=== PATIENT | female | born 1990 | race Hispanic/Latino ===

== ENCOUNTER 2017-06-26 13:20 | Observation (INO) | payer MEDICAID ==
[~2017-06-26] VITALS: Ht 157.5 cm; Wt 85.7 kg
[2017-06-26 14:33] VITALS: BP 95/54
== END 2017-06-26 15:04 | disposition home or self-care (01) ==
LOC: EDH 13:20 → LDH 13:35
PROVIDERS: ADMIT Obstetrics & Gynecology; ATTEND Obstetrics & Gynecology
DX: O26.892 Other specified pregnancy related conditions, second trimester (principal); R05 Cough; N89.8 Other specified noninflammatory disorders of vagina; Z3A.27 27 weeks gestation of pregnancy
CPT/HCPCS: 99285; G0378; 96361

== ENCOUNTER 2017-09-18 22:03 | Inpatient (IN) | payer OTHER, MEDICAID ==
[~2017-09-18] VITALS: Ht 157.5 cm; Wt 82.1 kg
[2017-09-18] MEDS ORDERED: LACTATED RINGERS 500 ML 500 ML IV PRN (22:15)
[2017-09-18] MEDS ORDERED: PROMETHAZINE HCL 25 MG/ML 1ML AMPULE IM PRN (22:15)
[2017-09-18] MEDS ORDERED: MEPERIDINE-PF 50 MG/ML SYG IVP PRN (22:15)
[2017-09-18] MEDS ORDERED: LACTATED RINGERS 1000ML 1,000 ML IV PRN (22:15)
[2017-09-18] MEDS ORDERED: NALOXONE HCL 0.4 MG/1 ML ML IV PRN (22:15)
[2017-09-18] MEDS ORDERED: EPHEDRINE SULFATE 50 MG/ML AMPULE IVP PRN (22:15)
[2017-09-18 22:53] LABS: HEMATOCRIT 28.8 % (36-48); MEAN CORPUSCULAR HEMOGLOBIN 25.2 pg (27.0-33.0); MEAN CORPUSCULAR HGB CONC 33.1 g/dL (32.0-36.0); MEAN CORPUSCULAR VOLUME 76.1 fL (79-99); PLATELET COUNT (AUTO) 215 K/uL (130-400); RED BLOOD CELL COUNT(AUTO) 3.78 MIL/uL (4.00-5.50); RED CELL DISTRIBUTION WIDTH 18.6 % (11.0-15.5); WHITE BLOOD COUNT (AUTO) 15.3 K/uL (4.8-10.8)
[2017-09-18 23:00] LABS: BILIRUBIN,URINE Negative (NEGATIVE); COLOR,URINE Yellow (YELLOW); GLUCOSE, URINE (UA) Negative (NEGATIVE); KETONES,URINE Negative (NEGATIVE); LEUKOCYTE ESTERASE ,URINE Large (NEGATIVE); NITRATE,URINE Negative (NEGATIVE); OCCULT BLOOD,URINE Trace (NEGATIVE); PH,URINE 6.5 (5.0-8.0); PROTEIN,URINE Negative (NEGATIVE)
[2017-09-18 23:02] LABS: APPEARANCE,URINE HAZY (CLEAR)
[2017-09-18 23:23] LABS: BACTERIA,URINE Few /HPF (None Seen)
[2017-09-19] MEDS ORDERED: OXYTOCIN 10 USP UNITS/ML ONE ×2 (03:14→14:20)
[2017-09-19] MEDS ORDERED: LACTATED RINGERS 1000ML 1,000 ML IV ONE ×2 (03:14→14:20)
[2017-09-19] MEDS ORDERED: OXYTOCIN 10 USP UNITS/ML 20 UNIT in LACTATED RINGERS 1000ML 1,000 ML IV SCH (04:00)
[2017-09-19] MEDS ORDERED: LANOLIN 30GM OINTMENT TP PRN (14:00)
[2017-09-19] MEDS ORDERED: BENZOCAINE/LANOLIN/ALOE VERA 60 ML AEROSOL TP PRN (14:00)
[2017-09-19] MEDS ORDERED: DIPH,PERTUSS(ACELL),TET VAC/PF 0.5 ML VIAL IM PRN (14:00)
[2017-09-19] MEDS ORDERED: ACETAMINOPHEN 325 MG TAB PO PRN (14:00)
[2017-09-19] MEDS ORDERED: ACETAMINOPHEN-CODEINE 300/30MG TAB PO PRN (14:00)
[2017-09-19] MEDS ORDERED: MEASLES/MUMPS/RUBELLA VACCINE, LIVE 0.5 ML/VIAL SQ PRN (14:00)
[2017-09-19] MEDS ORDERED: WITCH HAZEL 1 PAD TP PRN (14:00)
[2017-09-19 15:30] VITALS: BP 103/57
[2017-09-19] MEDS: IBUPROFEN 800 MG TAB PO PRN (16:31)
[2017-09-19 20:20] VITALS: BP 111/68
[2017-09-19] MEDS: DOCUSATE SODIUM 100 MG CAP PO SCH (21:56)
[2017-09-19 23:12] VITALS: BP 93/58
[2017-09-20 03:48] VITALS: BP 98/60
[2017-09-20 07:21] LABS: HEMATOCRIT 26.6 % (36-48); MEAN CORPUSCULAR HEMOGLOBIN 24.2 pg (27.0-33.0); MEAN CORPUSCULAR HGB CONC 31.6 g/dL (32.0-36.0); MEAN CORPUSCULAR VOLUME 76.5 fL (79-99); PLATELET COUNT (AUTO) 177 K/uL (130-400); RED BLOOD CELL COUNT(AUTO) 3.48 MIL/uL (4.00-5.50); RED CELL DISTRIBUTION WIDTH 18.9 % (11.0-15.5); WHITE BLOOD COUNT (AUTO) 16.8 K/uL (4.8-10.8)
[2017-09-20 07:43] VITALS: BP 99/61
[2017-09-20] MEDS: DOCUSATE SODIUM 100 MG CAP PO SCH (08:17)
[2017-09-20] MEDS: IBUPROFEN 800 MG TAB PO PRN (08:18)
[2017-09-20 08:20] LABS: HEPATITIS Bs ANTIGEN SCREEN P Negative (Negative)
[2017-09-20 11:21] VITALS: BP 109/50
[2017-09-20 15:35] VITALS: BP 102/57
== END 2017-09-20 16:15 | disposition home or self-care (01) | DRG 775 ==
LOC: LDH 22:03 → WSH 09-19 16:25
PROVIDERS: ADMIT Obstetrics & Gynecology; ATTEND Obstetrics & Gynecology
PROC: 10E0XZZ Delivery of Products of Conception, External Approach (ICD-10-PCS; principal; 2017-09-19)
PROC: 10907ZC Drainage of Amniotic Fluid, Therapeutic from Products of Conception, Via Natural or Artificial Opening (ICD-10-PCS; 2017-09-19)
PROC: 3E033VJ Introduction of Other Hormone into Peripheral Vein, Percutaneous Approach (ICD-10-PCS; 2017-09-19)
PROC: 3E0234Z Introduction of Serum, Toxoid and Vaccine into Muscle, Percutaneous Approach (ICD-10-PCS; 2017-09-19)
PROC: 3E0134Z Introduction of Serum, Toxoid and Vaccine into Subcutaneous Tissue, Percutaneous Approach (ICD-10-PCS; 2017-09-19)
DX: O80 Encounter for full-term uncomplicated delivery (principal); Z23 Encounter for immunization; Z37.0 Single live birth; Z3A.39 39 weeks gestation of pregnancy
CPT/HCPCS: 36415; 76805; 81001; 85027; 86592; 86850; 86900; 86901; 87340; A4314; A4351; J2590; J7120

== ENCOUNTER 2022-06-07 22:27 | Inpatient (IN) | payer MEDICAID, OTHER ==
[~2022-06-07] VITALS: Ht 157.5 cm; Wt 83.9 kg
[2022-06-07] MEDS ORDERED: LACTATED RINGERS 500 ML 500 ML IV PRN (22:30)
[2022-06-07] MEDS ORDERED: PROMETHAZINE HCL 25 MG/ML 1ML AMPULE IM PRN (22:30)
[2022-06-07] MEDS ORDERED: NALOXONE HCL 0.4 MG/1 ML ML IV PRN (22:30)
[2022-06-07] MEDS ORDERED: ROPIVACAINE 0.2% 100ML VIAL 100 ML EP SCH (22:30)
[2022-06-07] MEDS ORDERED: EPHEDRINE SULFATE 50 MG/ML AMPULE IVP PRN (22:30)
[2022-06-07] MEDS ORDERED: MEPERIDINE-PF 50 MG/ML SYG IVP PRN (22:30)
[2022-06-07] MEDS ORDERED: PREN-196 PO (22:58)
[2022-06-07 23:15] LABS: APPEARANCE,URINE CLEAR (CLEAR); BILIRUBIN,URINE NEGATIVE (NEGATIVE); COLOR,URINE LIGHT-YELLOW (YELLOW); GLUCOSE, URINE (UA) NEGATIVE (NEGATIVE); KETONES,URINE NEGATIVE (NEGATIVE); LEUKOCYTE ESTERASE ,URINE 250 Leu/uL (NEGATIVE); NITRATE,URINE NEGATIVE (NEGATIVE); OCCULT BLOOD,URINE NEGATIVE (NEGATIVE); PH,URINE 6.5 (5.0-8.0); PROTEIN,URINE NEGATIVE (NEGATIVE); UROBILINOGEN,URINE 0.2 mg/dL (0.2-1.0)
[2022-06-07 23:20] LABS: BACTERIA,URINE RARE /HPF (None Seen); MUCUS,URINE RARE LPF (None Seen); SQUAMOUS EPITHELIAL CELL,UR MOD /HPF (0-2)
[2022-06-07 23:59] LABS: HEMATOCRIT 29.6 % (36-48); MEAN CORPUSCULAR HEMOGLOBIN 23.9 pg (27.0-33.0); MEAN CORPUSCULAR HGB CONC 31.1 g/dL (32.0-36.0); MEAN CORPUSCULAR VOLUME 76.9 fL (79-99); PLATELET COUNT (AUTO) 203 K/uL (130-400); RED BLOOD CELL COUNT(AUTO) 3.85 MIL/uL (4.00-5.50); RED CELL DISTRIBUTION WIDTH 15.8 % (11.0-15.5); WHITE BLOOD COUNT (AUTO) 11.9 K/uL (4.8-10.8)
[2022-06-08] VITALS: BP 107/60
[2022-06-08] MEDS: LACTATED RINGERS 1000ML 1,000 ML IV PRN ×4 (00:14→08:12)
[2022-06-08] MEDS ORDERED: OXYTOCIN-LR 20 UNITS/1000 ML 1,000 ML IV SCH ×2 (04:00→11:30)
[2022-06-08] MEDS ORDERED: LIDOCAINE HCL 1% 20 ML VIAL ONE (09:06)
[2022-06-08] MEDS ORDERED: METHYLERGONOVINE MALEATE 0.2 MG/1 ML ML ONE (09:07)
[2022-06-08] MEDS ORDERED: WITCH HAZEL 1 PAD TP PRN (11:30)
[2022-06-08] MEDS ORDERED: LANOLIN 30GM OINTMENT TP PRN (11:30)
[2022-06-08] MEDS ORDERED: BENZOCAINE/LANOLIN/ALOE VERA 60 ML AEROSOL TP PRN (11:30)
[2022-06-08] MEDS ORDERED: ACETAMINOPHEN 325 MG TAB PO PRN (11:30)
[2022-06-08] MEDS ORDERED: ACETAMINOPHEN WITH CODEINE 1 TAB TAB PO PRN (11:30)
[2022-06-08] MEDS ORDERED: MEASLES/MUMPS/RUBELLA VACCINE, LIVE 0.5 ML/VIAL SQ PRN (11:30)
[2022-06-08] MEDS ORDERED: DIPH,PERTUSS(ACELL),TET VAC/PF 0.5 ML VIAL IM PRN (11:30)
[2022-06-08] MEDS: IBUPROFEN 600 MG TABLET PO PRN (13:45)
[2022-06-08 14:15] VITALS: BP 118/70
[2022-06-08 16:00] VITALS: BP 108/56
[2022-06-08 19:23] VITALS: BP 98/63
[2022-06-08] MEDS: DOCUSATE SODIUM 100 MG CAP PO SCH (21:13)
[2022-06-08 23:32] VITALS: BP 108/67
[2022-06-09 03:30] VITALS: BP 102/66
[2022-06-09] MEDS: IBUPROFEN 600 MG TABLET PO PRN ×2 (03:53→08:58)
[2022-06-09 06:53] LABS: HEMATOCRIT 27.4 % (36-48); MEAN CORPUSCULAR HEMOGLOBIN 23.9 pg (27.0-33.0); MEAN CORPUSCULAR HGB CONC 30.7 g/dL (32.0-36.0); MEAN CORPUSCULAR VOLUME 77.8 fL (79-99); RED BLOOD CELL COUNT(AUTO) 3.52 MIL/uL (4.00-5.50); RED CELL DISTRIBUTION WIDTH 15.8 % (11.0-15.5); WHITE BLOOD COUNT (AUTO) 13.1 K/uL (4.8-10.8)
[2022-06-09 07:48] VITALS: BP 90/48
[2022-06-09] MEDS: DOCUSATE SODIUM 100 MG CAP PO SCH (08:57)
[2022-06-09 11:01] VITALS: BP 98/64
== END 2022-06-09 12:25 | disposition home or self-care (01) | DRG 560 ==
LOC: LDH 22:27 → WSH 06-08 13:43
PROVIDERS: ADMIT Obstetrics & Gynecology; ATTEND Obstetrics & Gynecology
PROC: 10E0XZZ Delivery of Products of Conception, External Approach (ICD-10-PCS; principal; 2022-06-08)
PROC: 10907ZC Drainage of Amniotic Fluid, Therapeutic from Products of Conception, Via Natural or Artificial Opening (ICD-10-PCS; 2022-06-08)
PROC: 3E0R3BZ Introduction of Anesthetic Agent into Spinal Canal, Percutaneous Approach (ICD-10-PCS; 2022-06-08)
PROC: 00HU33Z Insertion of Infusion Device into Spinal Canal, Percutaneous Approach (ICD-10-PCS; 2022-06-08)
DX: O69.81X0 Labor and delivery complicated by cord around neck, without compression, not applicable or unspecified (principal); Z37.0 Single live birth; O99.02 Anemia complicating childbirth; Z3A.38 38 weeks gestation of pregnancy
CPT/HCPCS: 36415; 76805; 81001; 85027; 86592; 86850; 86900; 86901; 87088; 87340; A4314; A4351; G0378; J2210; J2590; J2795; J7120

== ENCOUNTER 2024-06-21 01:44 | Emergency (ER) | payer BC, MEDICAID ==
[~2024-06-21] VITALS: Ht 157.5 cm; Wt 79.8 kg
[~2024-06-21 01:44] MED LIST: PREN-196 PO
[2024-06-21] MEDS: IpraTROPium/alBUTERol SULFATE 3 ML SOLUTION IH ONE (02:25)
[2024-06-21] MEDS ORDERED: LACTATED RINGERS 1000ML IV ONE (02:26)
[2024-06-21] MEDS: LACTATED RINGERS 1000ML 1,002 ML IV ONE (02:26)
[2024-06-21 02:27] VITALS: PULSE 102; RESP 22
[2024-06-21] MEDS: BUDESONIDE 0.5 MG/2 ML INH IH SCH (02:27)
[2024-06-21 02:29] LABS: BASOPHILS # (AUTO) 0.01 K/uL (0.00-0.20); BASOPHILS % (AUTO) 0.1 % (0.0-5.0); EOSINOPHILS # (AUTO) 0.02 K/uL (0.00-0.70); EOSINOPHILS % (AUTO) 0.1 % (0.0-8.0); HEMATOCRIT 28.9 % (36-48); IMMATURE GRANULOCYTE ABSOLUTE 0.07 K/uL (0-1); LYMPHOCYTES % (AUTO) 7.2 % (21.0-51.0); MEAN CORPUSCULAR HEMOGLOBIN 23.7 pg (27.0-33.0); MEAN CORPUSCULAR HGB CONC 30.1 g/dL (32.0-36.0); MEAN CORPUSCULAR VOLUME 78.7 fL (79-99); MONOCYTES # (AUTO) 0.4 K/uL (0.1-1.0); MONOCYTES % (AUTO) 2.5 % (3.0-13.0); NEUTROPHILS # (AUTO) 12.6 K/uL (1.8-7.7); NEUTROPHILS % (AUTO) 89.6 % (40.0-77.0); NUCLEATED RED BLOOD CELLS 0.2 % (0.0-0.19); PLATELET COUNT (AUTO) 187 K/uL (130-400); RED BLOOD CELL COUNT(AUTO) 3.67 MIL/uL (4.00-5.50); RED CELL DISTRIBUTION WIDTH 17.2 % (11.0-15.5); WHITE BLOOD COUNT (AUTO) 14.1 K/uL (4.8-10.8)
[2024-06-21 02:51] LABS: RAPID GROUP A STREP negative (NEGATIVE)
[2024-06-21 02:52] LABS: CREATININE 0.7 mg/dL (0.5-1.0); POTASSIUM 3.7 mmol/L (3.5-5.1)
[2024-06-21 02:58] LABS: SARS-CoV-2, RNA, NAAT NEGATIVE SARS CoV-2 (NEGATIVE)
[2024-06-21 03:02] LABS: INFLUENZA TYPE A Negative For Type A (NEGATIVE); INFLUENZA TYPE B Negative For Type B (NEGATIVE)
--- NOTE | 2024-06-21 03:53 | ERN ---
General Chief Complaint: Cough Stated Complaint: C/O COUGH, BODYACHE,FEVER,HEADACHE Time Seen by MD: 01:58 History of Present Illness Initial Comments Mrs Holland is a 34-year-old female who is currently 36 weeks presents with fever chills and upper respiratory infection. Patient reports that she has been feeling tired and lethargic. She has had poor p.o. intake. She had some Tylenol prior to arrival Allergies: Coded Allergies: No Known Drug Allergies (Unverified Allergy, Unknown, 09/07/15) Home Meds Reported Medications Vit No.124/Iron/FA ( Vitamin Tablet) 1 Each Tablet, 1 EACH PO DAILYLUNCH, TAB 06/07/22 Past Medical History Past Medical History: No Pertinent History Past Surgical History: Other Female( History) LMP: Oct 12, 2023 : 5 Para: 4 Aborts: 0 ROS Dictation Constitutional: Positive for fever and chills Eyes: Negative for injury, pain,redness, and discharge ENT: Negative for injury,pain or swelling Cardiovascular: Negative for chest pain, palpitations, and edema Respiratory: Positive for cough Abdomen/GI: Negative for abdominal pain, nausea, vomiting, diarrhea, and constipation Back: Negative for injury and pain : Negative for injury, bleeding and discharge MS/Extremity: Negative for injury and deformity Skin: Negative for rash, and discoloration Neuro: Negative for headache, weakness, numbness, tingling, and seizure Psych: Negative for suicide ideation, homicidal ideation, and hallucinations Physical Exam Physical Exam Dictation General: awake, alert, NAD Head/Face: Normocephalic, atraumatic Eyes: PERRL, EOMI, vision at baseline ENT: oral cavity clear Neck: Trachea midline, supple, Cardiovascular: RRR, normal S1/S2, No MRGs, no JVD Respiratory: Decreased breath sounds bilaterally Abdomen: Soft, non-tender, non-distended Skin: Warm, dry, normal turgor, no rash MS/Extremity: Pulses equal, no cyanosis Neuro: COAx4, GCS 15, strength 5/5, CN 2-12 intact Results Laboratory and Microbiology Lab and Micro Result Laboratory Tests Test 06/21/24 02:03 06/21/24 02:20 Influenza Type A Antigen Negative For Type A Influenza Type B Antigen Negative For Type B SARS-CoV-2, RNA, NAAT NEGATIVE SARS CoV-2 Group A Streptococcus Rapid negative (NEGATIVE) White Blood Count 14.1 K/uL (4.8-10.8) H Red Blood Count 3.67 MIL/uL (4.00-5.50) L Hemoglobin 8.7 g/dL (12.0-16.0) L Hematocrit 28.9 % (36-48) L Mean Corpuscular Volume 78.7 fL (79-99) L Mean Corpuscular Hemoglobin 23.7 pg (27.0-33.0) L Mean Corpuscular Hemoglobin Concent 30.1 g/dL (32.0-36.0) L Red Cell Distribution Width 17.2 % (11.0-15.5) H Platelet Count 187 K/uL (130-400) Mean Platelet Volume 10.7 fL (7.5-10.5) H Immature Granulocyte % (Auto) 0.5 % (0-1) Neutrophils (%) (Auto) 89.6 % (40.0-77.0) H Lymphocytes (%) (Auto) 7.2 % (21.0-51.0) L Monocytes (%) (Auto) 2.5 % (3.0-13.0) L Eosinophils (%) (Auto) 0.1 % (0.0-8.0) Basophils (%) (Auto) 0.1 % (0.0-5.0) Neutrophils # (Auto) 12.6 K/uL (1.8-7.7) H Lymphocytes # (Auto) 1.0 K/uL (1.0-4.8) Monocytes # (Auto) 0.4 K/uL (0.1-1.0) Eosinophils # (Auto) 0.02 K/uL (0.00-0.70) Basophils # (Auto) 0.01 K/uL (0.00-0.20) Absolute Immature Granulocyte (auto 0.07 K/uL (0-1) Nucleated Red Blood Cells 0.2 % (0.0-0.19) H White Cell Morphology Comment See comments Red Blood Cell Morphology See comments Sodium Level 137 mmol/L (136-145) Potassium Level 3.7 mmol/L (3.5-5.1) Chloride Level 102 mmol/L (101-111) Carbon Dioxide Level 23 mmol/L (21-32) Blood Urea Nitrogen 8 mg/dL (7-18) Creatinine 0.7 mg/dL (0.5-1.0) Glomerular Filtration Rate Calc 118 mL/min (>90) Random Glucose 90 mg/dL (70-105) Total Calcium 8.2 mg/dL (8.5-10.1) L MDM Patient was viral panel is negative. Advised patient to take iron. Advised the patient did do symptomatic and supportive care that is safe in . Patient at this point would like to go home and follow up with the primary care MDM: Differential diagnosis: Viral syndrome Rationale: Tests considered and ordered secondary to shared decision making include: Previous outside records reviewed: Old ER visits. Risk of complication and/or morbidity or mortality of patient management: None Medications-Per medication reconciliation Need for hospitalization: Patient does not meet criteria for hospitalization. Need for emergency major/minor surgery: No There are no social concerns with this patient. Prescription drug management Prescriptions will include symptomatic care Patient's prior external medical records from other ER visits were reviewed by me as indicated. Prior testing and results from previous visits were reviewed. Prior tests were taken into account with medical decision making and resource utilization, independent historian/historians were used to obtain complete medical history. I independently interpreted the test that were performed, results were reviewed by me and considered findings on radiology if ordered. Medical management and examination interpretation discussions were had by me with other qualified healthcare professionals as indicated for the patient's care. ED Course Orders Procedure Category Date Status Time Covid Rna Naat LAB 06/21/24 Complete 02:10 Influenza Type A & B, LAB 06/21/24 Complete Rapid 02:10 Rapid (Group A Strep) LAB 06/21/24 Complete 02:10 Cbc With Differential LAB 06/21/24 Complete 02:14 Ipratropium/Albuterol PHA 06/21/24 Complete Neb (Duoneb) 02:30 Basic Metabolic Panel LAB 06/21/24 Complete 02:14 Budesonide 0.5 Mg/2 PHA 06/21/24 Complete Ml Inh (Pulmicort 0. 06:00 Lactated Ringers PHA 06/21/24 In Process 1000ml (Lactated 02:30 Budesonide 0.5 Mg/2 PHA 06/21/24 In Process Ml Inh (Pulmicort 0. 02:30 Us Abdominal Ruq\Ltd US 06/21/24 Logged 03:41 Current Medications Medications (Trade) Dose Ordered Sig/Joyce Route PRN Reason Start Time Stop Time Status Last Admin Dose Admin Albuterol (DUOneb) 1 udvial ONCE ONCE IH 06/21/24 02:30 06/21/24 02:31 DC 06/21/24 02:25 Budesonide (Pulmicort 0.5 Mg/2ml) 0.5 mg BIDRESP IH 06/21/24 02:30 06/21/24 04:00 06/21/24 02:27 Budesonide (Pulmicort 0.5 Mg/2ml) 0.5 mg BIDRESP IH 06/21/24 06:00 06/21/24 02:25 DC Lactated Ringer's 1,002 ml @ 334 mls/hr ONCE ONCE IV 06/21/24 02:30 06/21/24 05:29 06/21/24 02:26 Vital Signs Date Time Temp Pulse Resp B/P (MAP) Pulse Ox O2 Delivery O2 Flow Rate FiO2 06/21/24 03:10 97.7 116 18 128/62 100 Room Air* 0 21 06/21/24 02:27 102 22 06/21/24 02:00 99.3 118 20 107/62 96 Room Air* 0 21 06/21/24 01:45 99.9 122 20 109/64 97 Room Air DX & DISP Disposition: Discharge Departure Impression: Primary Impression: Viral syndrome Condition: Stable Additional Instructions: Please follow up with your well logger in the next 1-7 days. Please take approved interventions to treat your viral illness. Please continue to drink plenty of fluid. Take Tylenol for pain. Consider taking cough medicine that is safe in . Referrals: SELF,REFERRAL (PCP) MICHELLE LOBATO MD Jun 21, 2024 03:53
[2024-06-21 03:58] VITALS: BP 118/60; PULSE 107; RESP 16; TEMP 97.6; O2SAT 100
[2024-06-21] MEDS ORDERED: BUDESONIDE 0.5 MG/2 ML INH IH SCH (06:00)
== END 2024-06-21 03:58 | disposition home or self-care (01) ==
LOC: EDH 01:44
DX: O98.513 Other viral diseases complicating pregnancy, third trimester (principal); B34.9 Viral infection, unspecified; Z20.822 Contact with and (suspected) exposure to COVID-19; Z3A.36 36 weeks gestation of pregnancy; Z79.51 Long term (current) use of inhaled steroids; Z98.890 Other specified postprocedural states
CPT/HCPCS: 99283; 87635; 80048; 85025; 87880; 87804 ×2; 36415; 94640; J7120

== ENCOUNTER 2024-07-02 10:44 | Inpatient (IN) | payer BC ==
[~2024-07-02] VITALS: Ht 157.5 cm; Wt 80.7 kg
[2024-07-02] MEDS ORDERED: AMPICILLIN 1GM+NS 50ML 50 ML IV SCH (12:00)
[2024-07-02] MEDS ORDERED: ePHEDrine SULFate 50 MG/ML AMPULE IVP PRN (12:00)
[2024-07-02] MEDS ORDERED: LACTATED RINGERS 500 ML 500 ML IV PRN (12:00)
[2024-07-02] MEDS ORDERED: NALoxone HCL 0.4 MG/1 ML ML IV PRN (12:00)
[2024-07-02] MEDS ORDERED: MISOPROSTOL 200 MCG TABLET ONE (12:04)
[2024-07-02] MEDS: LACTATED RINGERS 1000ML 1,000 ML IV PRN (12:09)
[2024-07-02] MEDS: AMPICILLIN 2GM+NS 100ML 100 ML IV SCH (12:09)
[2024-07-02 12:33] LABS: HEMATOCRIT 32.6 % (36-48); MEAN CORPUSCULAR HGB CONC 28.8 g/dL (32.0-36.0); MEAN CORPUSCULAR VOLUME 83.2 fL (79-99); NUCLEATED RED BLOOD CELLS 0.2 % (0.0-0.19); PLATELET COUNT (AUTO) 183 K/uL (130-400); RED BLOOD CELL COUNT(AUTO) 3.92 MIL/uL (4.00-5.50); RED CELL DISTRIBUTION WIDTH 21.9 % (11.0-15.5); WHITE BLOOD COUNT (AUTO) 9.3 K/uL (4.8-10.8)
--- NOTE | 2024-07-02 12:42 | HMCIMG ---
US OB >14 WEEKS REASON: WELL BEINT COMPARISON: None TECHNIQUE: Routine OB sonogram was performed. FINDINGS: There is a single fetus in cephalic presentation with positive motion and heartbeat, 150 BPM. Composite gestational age is 37 weeks 6 days. Placenta is posterior and grade 2 with MIK 15 cm. Estimated weight is 2560 g. anatomy appears unremarkable. IMPRESSION: 1. Single fetus cephalic presentation 36 weeks 6 days composite gestational age.
[2024-07-02] MEDS ORDERED: FENTanyl CITRate PF 50 MCG/1 ML 2ML VIAL ONE (13:15)
[2024-07-02 13:26] LABS: HIV 1&2 ANTIBODY Non-Reactive (Negative)
[2024-07-02 13:27] LABS: HIV-1 p24 Antigen Non-Reactive (Negative)
[2024-07-02] MEDS ORDERED: acetaMINOPHEN 325 MG TAB PO PRN (18:00)
[2024-07-02] MEDS ORDERED: acetaMINOPHEN WITH coDEINE 1 TAB TAB PO PRN (18:00)
[2024-07-02] MEDS: ibuPROFEN 600 MG TABLET PO PRN (18:40)
[2024-07-02 19:40] VITALS: BP 106/72; PULSE 73; RESP 18; TEMP 99.3
[2024-07-02 21:40] LABS: APPEARANCE,URINE CLEAR (CLEAR); BILIRUBIN,URINE NEGATIVE (NEGATIVE); COLOR,URINE YELLOW (YELLOW); GLUCOSE, URINE (UA) NEGATIVE (NEGATIVE); KETONES,URINE NEGATIVE (NEGATIVE); LEUKOCYTE ESTERASE ,URINE 250 Leu/uL (NEGATIVE); NITRATE,URINE NEGATIVE (NEGATIVE); OCCULT BLOOD,URINE NEGATIVE (NEGATIVE); PROTEIN,URINE NEGATIVE (NEGATIVE); UROBILINOGEN,URINE 0.2 mg/dL (0.2-1.0)
[2024-07-02 21:44] LABS: ADD UA MICROSCOPIC YES
[2024-07-02 21:46] LABS: BACTERIA,URINE RARE /HPF (None Seen); SQUAMOUS EPITHELIAL CELL,UR RARE /HPF (0-2); WBC,URINE 0-1 /HPF (0-1)
[2024-07-02 23:35] VITALS: BP 105/67; PULSE 78; RESP 17; TEMP 98.6
[2024-07-03 04:00] VITALS: BP 113/74; PULSE 69; RESP 18; TEMP 97.6
[2024-07-03 06:54] LABS: HEMATOCRIT 30.6 % (36-48); MEAN CORPUSCULAR HGB CONC 29.1 g/dL (32.0-36.0); MEAN CORPUSCULAR VOLUME 82.5 fL (79-99); RED BLOOD CELL COUNT(AUTO) 3.71 MIL/uL (4.00-5.50); RED CELL DISTRIBUTION WIDTH 21.8 % (11.0-15.5); WHITE BLOOD COUNT (AUTO) 15.5 K/uL (4.8-10.8)
[2024-07-03 08:00] VITALS: BP 102/60; PULSE 80; RESP 18; TEMP 97.9
[2024-07-03] MEDS: doCUSate SODIUM 100 MG CAP PO SCH (08:53)
[2024-07-03] MEDS: BENZOCAINE/LANOLIN/ALOE VERA 60 ML AEROSOL TP PRN (09:01)
[2024-07-03] MEDS: LANOLIN 30GM OINTMENT TP PRN (09:01)
[2024-07-03] MEDS: WITCH HAZEL 1 PAD TP PRN (09:01)
--- NOTE | 2024-07-03 09:03 | OP ---
DATE OF PROCEDURE: 07/02/2024 DELIVERY NOTE: The patient is a 34-year-old female 5, para 4 with intrauterine at 37 weeks and 6 days. The patient was sent from clinic secondary to 6 cm on vaginal exam in clinic. On admission, labor was augmented with Pitocin. Amniotomy was performed at 8 cm with clear fluid noted. Labor progressed well. The patient delivered via normal spontaneous vaginal delivery a viable and vigorous female in cephalic presentation, weighing 9 pounds 2 ounces (4150 grams) with scores of 9 and 9. 's head and body were delivered with Germán. Infant was placed on mother's abdomen for drying. Nares and mouth were bulb suctioned. Cord was doubly clamped and cut in sterile fashion by father. Cord blood was collected for analysis. Placenta was spontaneous and intact with 3-vessel cord. Good uterine involution was noted with 20 units of Pitocin IV fluids, fundal massage and Cytotec 1000 mcg per rectum. Perineum was intact. Mother and baby were stable to recovery. GBS status was unknown and one dose of IV ampicillin was given. Quantitative blood loss was 100 mL. Epidural was used for pain control. TID: [id number] RECEIPT: [id number]
[2024-07-03 11:36] VITALS: BP 109/72; PULSE 67; TEMP 97.4
--- NOTE | 2024-07-03 13:30 | NUR ---
IV D/C'D NO REDNESS NO PAIN TO SITE. PT UP TO SHOWER STEADY GAIT. AT BEDSIDE
[2024-07-03] MEDS ORDERED: IBUP-2077 PO (14:10)
[2024-07-03] MEDS ORDERED: DOCU-116 PO (14:11)
--- NOTE | 2024-07-03 15:04 | NUR ---
DISCHARGE INSTRUCTION GIVEN AND REVIEWED QUESTIONS ANSWERED. VOICES NO CONCERNS AND VOICES READINESS FOR DISCHARGE ONCE NB IS DISCHARGED
[2024-07-03 17:14] VITALS: BP 103/66; PULSE 78; TEMP 97.6
--- NOTE | 2024-07-03 17:35 | NUR ---
DISCHARGE INSTRUCTIONS REITERATED. VOICES NO CONCERNS.
--- NOTE | 2024-07-03 17:45 | NUR ---
TO PRIVATE CAR VIA WC AND NB IN ARMS. VOICES NO CONCERNS. DAUGHTER AT SIDE. WAITING.
== END 2024-07-03 17:55 | disposition home or self-care (01) | DRG 807 ==
LOC: LDH 10:44 → WSH 18:25
PROVIDERS: ADMIT Obstetrics & Gynecology; ATTEND Obstetrics & Gynecology
PROC: 10907ZC Drainage of Amniotic Fluid, Therapeutic from Products of Conception, Via Natural or Artificial Opening (ICD-10-PCS; principal; 2024-07-02)
PROC: 10E0XZZ Delivery of Products of Conception, External Approach (ICD-10-PCS; 2024-07-02)
DX: O80 Encounter for full-term uncomplicated delivery (principal); Z37.0 Single live birth; Z3A.37 37 weeks gestation of pregnancy
CPT/HCPCS: 36415; 76805; 81001; 85027; 86592; 86701; 86850; 86900; 86901; 87086; 87340; 87390; A4314; G0378; J0290; J2795; J3010; J7120